=== PATIENT | female | born 1935 | race Caucasian/White ===

== ENCOUNTER 2016-11-08 08:56 | Inpatient (IN) | payer MEDICARE ==
[~2016-11-08 08:56] MED LIST: ADULT ASPIRIN81 MG; BROVANA15 MCG/2 M IH; CALCIUM + D T1 UDTAB PO; EVISTA60 MG; EVISTA60 MG PO; FELODIPINE ER10 M2 PO; FLAGYL500 MG PO; FOSAMAX; HYDROCHLOROTHIA25 MG; IPRAT-ALBUT 0.5-3 ML INH; K-TAB10 MEQ; LEVAQUIN750 MG PO; MUCINEX600 MG PO; NICODERM21 MG/PATC TD; OCEAN45 ML NS; PLENDIL10 MG; PLENDIL2.5 MG; POTASSIUM CHLO20 MEQ; PREDNISONE10 MG PO; PROAIR HFA8.5 GM INH; PROTONIX40 M2 PO; PROTONIX40 MG; PULMICORT0.5 MG/21 IH; TYLENOL325 MG PO
[2016-11-08] MEDS ORDERED: PAROXETINE HCL10 M2 PO (09:48)
[2016-11-08] MEDS ORDERED: IPRAT-ALBUT 0.5-3 ML INH (09:52)
[2016-11-08 09:56] LABS: BASO % 0.3 % (0-2); EOS % 0.3 % (0-7); HCT-HEMATOCRIT 42.3 % (34.0-49.0); HGB-HEMOGLOBIN 13.6 gm/dl (12.0-15.5); IMMATURE GRANULOCYTES ABSOLUTE 0.09 tho/cmm (0-0.03); IMMATURE GRANULOCYTES PERCENT 0.3 % (0-0.3); LYMPH % 70.3 % (20-45); MCH (MEAN CORPUSCULAR HGB) 27.8 pg (28.0-32.0); MCHC MEAN CORPUSCULAR HGB CONC 32.2 % (32.0-36.0); MCV (MEAN CELL VOLUME) 86.3 fl (82.0-96.0); MEAN PLATELET VOLUME 9.4 cmc (9.4-12.4); MONO % 2.3 % (0-12); NEUTROPHIL ABSOLUTE COUNT 7.9 tho/cmm (1.6-8.0); NEUTROPHIL-AUTOMATED 7.9 tho/cmm (1.6-8.0); NEUTROPHILS % 26.5 % (40-80); PLATELET COUNT 314 tho/cmm (150-450); RED CELL DISTRIBUTION WIDTH 16.1 % (12.4-16.4); WHITE BLOOD COUNT 29.6 tho/cmm (4.0-10.0)
[2016-11-08 09:57] LABS: BASO ABSOLUTE COUNT 0.1 tho/cmm (0.0-0.2); EOSINOPHIL ABSOLUTE COUNT 0.1 tho/cmm (0.0-0.7); LYMPH ABSOLUTE COUNT 20.8 tho/cmm (0.8-4.5); MONOCYTE ABSOLUTE COUNT 0.7 tho/cmm (0.0-1.2)
[2016-11-08] MEDS ORDERED: VITAMIN D31000 UNI4 PO (10:05)
[2016-11-08] MEDS ORDERED: BROVANA15 MCG/22 INH (10:08)
[2016-11-08] MEDS ORDERED: PULMICORT0.5 MG/22 PO (10:08)
[2016-11-08 10:17] LABS: ANION GAP 12 mmol/L (0-20); BLOOD UREA NITROGEN 14 mg/dl (6-24); CALCIUM 8.8 mg/dl (8.5-10.5); CARBON DIOXIDE-VENOUS 28 mmol/L (22-32); CHLORIDE 105 mmol/l (96-110); CREATININE 1.11 mg/dl (0.50-1.10); GLUCOSE 92 mg/dL (70-110); POTASSIUM 3.9 mmol/L (3.7-5.1); SODIUM 141 mmol/L (135-145); eGFR VALUE FOR BLACK 53 mL/Min
--- NOTE | 2016-11-08 21:53 | NUR ---
VIRTUAL CARE NOTE: ASSESSMENT DEFERRED. PT. SLEEPING.
[2016-11-09 05:03] LABS: BASO % 0.1 % (0-2); HCT-HEMATOCRIT 40.2 % (34.0-49.0); HGB-HEMOGLOBIN 12.5 gm/dl (12.0-15.5); IMMATURE GRANULOCYTES ABSOLUTE 0.07 tho/cmm (0-0.03); IMMATURE GRANULOCYTES PERCENT 0.3 % (0-0.3); LYMPH % 67.6 % (20-45); MCH (MEAN CORPUSCULAR HGB) 27.1 pg (28.0-32.0); MCHC MEAN CORPUSCULAR HGB CONC 31.1 % (32.0-36.0); MEAN PLATELET VOLUME 9.5 cmc (9.4-12.4); MONO % 0.8 % (0-12); NEUTROPHIL ABSOLUTE COUNT 8.6 tho/cmm (1.6-8.0); NEUTROPHIL-AUTOMATED 8.6 tho/cmm (1.6-8.0); NEUTROPHILS % 31.2 % (40-80); PLATELET COUNT 309 tho/cmm (150-450); RED BLOOD COUNT 4.62 mil/cmm (4.00-5.20); RED CELL DISTRIBUTION WIDTH 16.2 % (12.4-16.4); WHITE BLOOD COUNT 27.5 tho/cmm (4.0-10.0)
[2016-11-09 05:06] LABS: LYMPH ABSOLUTE COUNT 18.6 tho/cmm (0.8-4.5); MONOCYTE ABSOLUTE COUNT 0.2 tho/cmm (0.0-1.2)
[2016-11-09 05:12] LABS: ANION GAP 11 mmol/L (0-20); BLOOD UREA NITROGEN 13 mg/dl (6-24); CALCIUM 8.4 mg/dl (8.5-10.5); CARBON DIOXIDE-VENOUS 30 mmol/L (22-32); CHLORIDE 105 mmol/l (96-110); CREATININE 1.14 mg/dl (0.50-1.10); GLUCOSE 131 mg/dL (70-110); POTASSIUM 4.2 mmol/L (3.7-5.1); SODIUM 142 mmol/L (135-145); eGFR VALUE FOR BLACK 51 mL/Min
--- NOTE | 2016-11-09 22:09 | NUR ---
VIRTUAL CARE NOTE: PT. STATES WAS ON THE PHONE, WILL TRY TO ROUND AGAIN AT A LATER TIME.
[2016-11-10 05:16] LABS: BASO % 0.1 % (0-2); HCT-HEMATOCRIT 39.2 % (34.0-49.0); HGB-HEMOGLOBIN 12.3 gm/dl (12.0-15.5); IMMATURE GRANULOCYTES ABSOLUTE 0.12 tho/cmm (0-0.03); IMMATURE GRANULOCYTES PERCENT 0.4 % (0-0.3); LYMPH % 67.8 % (20-45); MCH (MEAN CORPUSCULAR HGB) 27.3 pg (28.0-32.0); MCHC MEAN CORPUSCULAR HGB CONC 31.4 % (32.0-36.0); MCV (MEAN CELL VOLUME) 86.9 fl (82.0-96.0); MEAN PLATELET VOLUME 9.5 cmc (9.4-12.4); MONO % 1.5 % (0-12); NEUTROPHIL ABSOLUTE COUNT 10.2 tho/cmm (1.6-8.0); NEUTROPHIL-AUTOMATED 10.2 tho/cmm (1.6-8.0); NEUTROPHILS % 30.2 % (40-80); PLATELET COUNT 304 tho/cmm (150-450); RED BLOOD COUNT 4.51 mil/cmm (4.00-5.20); RED CELL DISTRIBUTION WIDTH 16.1 % (12.4-16.4); WHITE BLOOD COUNT 33.7 tho/cmm (4.0-10.0)
[2016-11-10 05:22] LABS: LYMPH ABSOLUTE COUNT 22.9 tho/cmm (0.8-4.5); MONOCYTE ABSOLUTE COUNT 0.5 tho/cmm (0.0-1.2)
[2016-11-10 05:32] LABS: ANION GAP 13 mmol/L (0-20); BLOOD UREA NITROGEN 21 mg/dl (6-24); CALCIUM 8.6 mg/dl (8.5-10.5); CARBON DIOXIDE-VENOUS 28 mmol/L (22-32); CHLORIDE 106 mmol/l (96-110); CREATININE 1.12 mg/dl (0.50-1.10); GLUCOSE 132 mg/dL (70-110); SODIUM 143 mmol/L (135-145); eGFR VALUE FOR BLACK 53 mL/Min
[2016-11-11 05:12] LABS: ANION GAP 9 mmol/L (0-20); BLOOD UREA NITROGEN 24 mg/dl (6-24); CALCIUM 8.3 mg/dl (8.5-10.5); CARBON DIOXIDE-VENOUS 32 mmol/L (22-32); CHLORIDE 105 mmol/l (96-110); CREATININE 1.12 mg/dl (0.50-1.10); GLUCOSE 98 mg/dL (70-110); POTASSIUM 3.7 mmol/L (3.7-5.1); SODIUM 142 mmol/L (135-145); eGFR VALUE FOR BLACK 53 mL/Min
[2016-11-11] MEDS ORDERED: PREDNISONE10 M1 PO (12:44)
[2016-11-11] MEDS ORDERED: MUCINEX600 M1 PO (12:45)
== END 2016-11-11 15:30 | DRG 190 ==
LOC: EDMED 08:56 → EMR2 14:21 → 5WD 15:15
PROVIDERS: Emergency Medicine; Family Medicine; ADMIT Hospitalist
DX: J44.1 Chronic obstructive pulmonary disease with (acute) exacerbation (principal); J96.22 Acute and chronic respiratory failure with hypercapnia; C91.10 Chronic lymphocytic leukemia of B-cell type not having achieved remission; F41.9 Anxiety disorder, unspecified; K21.9 Gastro-esophageal reflux disease without esophagitis; M54.5 Low back pain; F17.210 Nicotine dependence, cigarettes, uncomplicated; Z51.5 Encounter for palliative care; I10 Essential (primary) hypertension; G62.9 Polyneuropathy, unspecified; Z99.81 Dependence on supplemental oxygen
CPT/HCPCS: J0456; J7030; J7050; J7512; Q9967